=== PATIENT | female | born 1965 | race Caucasian/White ===

== ENCOUNTER 2016-12-21 10:13 | Outpatient (CLI) ==
--- NOTE | 2016-12-21 10:51 | US ---
EXAM: Diagnostic bilateral breast ultrasound HISTORY: 6-month follow-up for complex cysts. COMPARISON: Ultrasound on diagnostic mammogram 07/06/2016 FINDINGS: Right breast demonstrates a complex predominantly anechoic lesion measuring 1.2 x 1.1 x 1. 1 cm at 12 o'clock 2-3 cm from the nipple which is unchanged from prior exam. There is no internal color Doppler flow. In the left breast at 12 o'clock 4 cm from the nipple there is a complex 1.2 x 1.3 x 1.2 cm lesion with no internal color Doppler flow which measures slightly decreased in compari son to prior at 1.5 x 1.2 x 1.3 cm. There is an additional complex lesion measuring 0.6 x 0.5 cm at 12 o'clock 4-5 cm from the nipple which measures slightly decreased from prior 0.9 x 0.7 cm. In th e left breast at 07/18 45 cm from the nipple there is a 0.5 x 0.4 cm complex lesion with no internal color Doppler flow, unchanged from prior exam. IMPRESSION: Multiple complex predominantly cystic lesions with no internal color Doppler flow and m ild decrease in size of left breast lesions in comparison to prior. These are most consistent with complex cyst. Recommendation: Follow-up ultrasound in 6 months to document stability. BIRADS category III: Probable benign finding.
== END 2016-12-21 10:14 | disposition home or self-care (01) ==
LOC: RAD 10:13
PROVIDERS: ATTEND Internal Medicine
DX: N60.01 Solitary cyst of right breast (principal); N60.02 Solitary cyst of left breast

== ENCOUNTER 2017-07-12 09:09 | Outpatient (CLI) ==
--- NOTE | 2017-07-12 10:48 | US ---
EXAM: Bilateral breast ultrasound. History: Follow-up bilateral breast masses. Comparison: Bilateral breast ultrasound 12/21/2016, bilateral mammogram 07/12/2017 Technique: Multiple sonographic images through the bilateral breast were obtained. Color duplex Dop pler was used to interrogate vascular flow. Findings: Numerous bilateral breast cysts again identified with a few complicated demonstrating inte rnal echoes not significantly changed compared to the prior study. Impression: Multiple simple and complicated bilateral breast cysts are probably benign. Recommend 6 -month follow-up ultrasound. BIRADS 3
--- NOTE | 2017-07-12 10:49 | MAMMO ---
EXAM: Bilateral digital diagnostic mammogram (2-D and 3-D) History: Follow-up bilateral breast cysts. Comparison: Bilateral mammogram 06/24/2016 Findings: MLO and CC views of bilateral breasts demonstrate heterogeneously dense breast parenchyma which can obscure small lesions. Stable bilateral breast masses. Stable benign bilateral breast valerio cifications. No architectural distortions. Impression: Stable indeterminate bilateral breast masses. Recommend further evaluation with bilater al breast ultrasound. BIRADS 0
== END 2017-07-12 09:10 | disposition home or self-care (01) ==
LOC: RAD 09:09
PROVIDERS: ATTEND Internal Medicine
DX: R92.8 Other abnormal and inconclusive findings on diagnostic imaging of breast (principal)